=== PATIENT | male | born 1965 | race Caucasian/White ===

== ENCOUNTER 2022-11-08 06:31 | Day surgery (SDC) | payer OTHER ==
[2022-11-04 15:32] LABS: Absolute Lymphocytes (CBC) 2.3 K/uL (0.7-4.9); Hematocrit 44.4 % (39.6-49.0); Lymphocytes % 34.3 % (15.3-44.8); MPV 8.5 fL (7.6-11.3); RBC Red Blood Cell Count 5.11 M/uL (4.33-5.43)
[2022-11-04 15:46] LABS: Potassium 4.3 mEq/L (3.5-5.1)
--- NOTE | 2022-11-04 19:45 | RAD REPORT ---
EXAM DESCRIPTION: [facility] Views[facility]11/04/2022 3:20 pm CLINICAL HISTORY: pre op for surgery COMPARISON: No comparisons TECHNIQUE: PA and lateral views of the chest. FINDINGS: The lungs are clear. No pneumothorax or effusion. The cardiomediastinal contours are unrem arkable. IMPRESSION: No acute cardiopulmonary process.
--- NOTE | 2022-11-06 15:25 | EKG ---
Test Date: 2022-11-04 Test Time: 14:59:51 English And Reading Instructor: DO MEASUREMENT RESULTS: Intervals: Rate: 53 GA: 228 QRSD: 110 QT: 432 QTc: 405 [place]: P: 75 GA: 228 QRS: -17 T: 15 INTERPRETIVE STATEMENTS: Sinus bradycardia with 1st degree AV block Otherwise normal ECG No previous ECG available for comparison Electronically Signed On 11-06-22 15:24:06 CDT by He Rendon
[2022-11-08] MEDS ORDERED: CEFAZOLIN SODIUM 1 GM/VIAL ONE (07:00)
[2022-11-08] MEDS ORDERED: Ringers Lactate 1,000 ML IV ONE (07:00)
[2022-11-08] MEDS ORDERED: KETOROLAC 30 MG/ML INJ ONE (08:12)
[2022-11-08] MEDS ORDERED: propofoL 200 MG/20 ML VIAL IV ONE (08:12)
[2022-11-08] MEDS ORDERED: MIDAZOLAM HCL 2 MG/2 ML INJ ONE (08:12)
[2022-11-08] MEDS ORDERED: FENTANYL CITR 100 MCG/2 ML ONE ×2 (08:12→08:51)
[2022-11-08] MEDS ORDERED: ROCURONIUM 50 MG/5 ML VIAL IV ONE (08:12)
[2022-11-08] MEDS ORDERED: ONDANSETRON 4 MG/2 ML VIAL ONE (08:14)
[2022-11-08] MEDS ORDERED: LIDOCAINE 2% MPF 5 ML VIAL ONE (08:14)
[2022-11-08] MEDS ORDERED: NEOSTIGMINE 1 MG/ML -10 ML VIAL ONE (09:19)
[2022-11-08] MEDS ORDERED: GLYCOPYRROLATE 0.2 MG/ML SYR ONE (09:19)
[2022-11-08 09:44] VITALS: O2SAT 100
[2022-11-08] MEDS ORDERED: HYDROCODONE/APAP 7.5/325 MG TAB PO PRN (10:05)
[2022-11-08] MEDS ORDERED: HYDROCODONE/APAP 7.5/325 MG TAB ONE (11:04)
[2022-11-08 11:25] VITALS: TEMP 97.4
[2022-11-08 11:30] VITALS: BP 110/81
--- NOTE | 2022-11-08 21:28 | OP ---
Date of Procedure: 11/08/2022 Surgeon: Shade Whipple MD Plant Operator Helper: None. Preoperative Diagnosis: Left inguinal hernia. Postoperative Diagnosis: Left inguinal hernia. Procedure: Repair of left inguinal hernia. Estimated Blood Loss: Minimal. Specimen: Hernia sac and cord lipoma. Findings: As above. Anesthesia: General. Complications: None. Condition: The patient tolerated the procedure in stable condition. Taken to recovery room in good general condition. Procedure In Detail: The patient brought to the OR and placed in supine position. General anesthesi a begun. The patient was prepped and draped in usual sterile fashion. Marcaine 0.5% was infiltrated in a field block fashion for postop pain control. Then, 15 blade used to make a 4 cm oblique incisi on between the left pubic tubercle and the anterior iliac spine. Subcutaneous tissue divided. Scarp a's fascia identified and divided. Aponeurosis was identified and mobilized inferiorly to expose she lving edge, and then opened through the external ring. The ilioinguinal nerve identified and retract ed out of the field of dissection, cord mobilized and skeletonized. A large hernia sac and cord lipo ma identified at the anteromedial portion of the cord. High ligation of both structures was done wit h 2-0 chromic for the cord lipoma and 2-0 Prolene suture ligature free and tied. Both structures exc ised and sent to pathology as specimen. Marlex mesh plug placed in the internal ring and secured wit h VersaTack stapler. An onlay mesh placed on the inguinal floor and secured medially to the pubic tu bercle, superiorly to the conjoined tendon, inferiorly to the shelving edge, laterally to each other. Then cord structures and ilioinguinal nerve placed back in anatomical location. A 2-0 Prolene used to close the aponeurosis. 3-0 chromic used to close Lana's fascia. Josiah used to close the ski n. Sterile dressing applied. The patient was awakened, taken to recovery room in good general condi tion. /MODL Voice ID: [id number] Report ID: [id number]
== END 2022-11-08 11:43 | disposition home or self-care (01) ==
LOC: OR 06:31
PROVIDERS: ATTEND Surgery
PROC: 0YU60JZ Supplement Left Inguinal Region with Synthetic Substitute, Open Approach (ICD-10-PCS; principal; 2022-11-08 08:30)
DX: K40.90 Unilateral inguinal hernia, without obstruction or gangrene, not specified as recurrent (principal)
CPT/HCPCS: 93005; 85025; 80048; 36415; 88302; 71046; 49505; J2704; J2710; J2001; J2250; J3010 ×2; J2405; J7120; J0690